=== PATIENT | female | born 1955 | race Caucasian/White ===

== ENCOUNTER 2017-01-06 19:19 | Emergency (ER) | payer MEDICAID ==
[~2017-01-06] VITALS: Ht 157.5 cm; Wt 88.5 kg
[~2017-01-06 19:19] MED LIST: ASPI-1063 PO; EZET1TAB29 PO; HYDR-914 PO; INSU100V SUBCUT
[2017-01-06 19:26] VITALS: BP_SYST 154
[2017-01-06] MEDS ORDERED: NACL 0.9% 1,000 ML IV ONE (20:06)
[2017-01-06] MEDS ORDERED: ONDANSETRON HCL 4 MG/2 ML VIAL IVP ONE (20:15)
[2017-01-06] MEDS ORDERED: HYDROmorphone 1 MG INJ. 1 MG/ML AMPUL IVP ONE ×2 (20:15→21:00)
[2017-01-06 20:27] LABS: BASOPHILS % (AUTO) 0.5 % (0.0-2.0); EOSINOPHILS # (AUTO) 0.3 K/uL (0.0-0.4); EOSINOPHILS % (AUTO) 4.2 % (0.0-4.0); HEMATOCRIT 42.1 % (36-48); HEMOGLOBIN 13.6 g/dL (12.0-16.0); LYMPHOCYTES # (AUTO) 1.7 K/uL (1.0-5.5); LYMPHOCYTES % (AUTO) 22.4 % (20.5-51.5); MEAN CORPUSCULAR HEMOGLOBIN 30 pg (27-31); MEAN CORPUSCULAR HGB CONC 32 % (32-36); MEAN CORPUSCULAR VOLUME 93 fL (79.0-98.0); MONOCYTES # (AUTO) 0.5 K/uL (0.0-1.0); MONOCYTES % (AUTO) 7.1 % (1.7-9.3); NEUTROPHILS # (AUTO) 5.1 K/uL (1.8-7.7); NEUTROPHILS % (AUTO) 65.8 % (40.0-70.0); PLATELET COUNT (AUTO) 273 K/uL (130-430); RED BLOOD CELL COUNT(AUTO) 4.55 MIL/uL (4.2-6.2); RED CELL DISTRIBUTION WIDTH 12.1 % (9.0-15.0); WHITE BLOOD COUNT (AUTO) 7.6 K/uL (4.8-10.8)
[2017-01-06 20:31] LABS: CALCIUM 10.2 mg/dL (8.4-11.0); CHLORIDE 99 mmol/L (98-107); CREATININE 0.99 mg/dL (0.55-1.30); GLUCOSE 144 mg/dL (70-99); POTASSIUM 4.2 mmol/L (3.5-5.1); SODIUM SERUM 135 mmol/L (136-145); UREA NITROGEN, BLOOD 22 mg/dL (8-21)
[2017-01-06 20:36] LABS: ALANINE AMINOTRANSFERASE 27 U/L (12-78); ALBUMIN 4.7 g/dL (3.4-4.8); AMYLASE 73 U/L (0-100); ASPARTATE AMINOTRANSFERASE 26 U/L (10-37); INR 0.9 (0.8-1.2); LIPASE 70 U/L (73-393); PROTHROMBIN TIME 9.9 SECS (9.5-12.5); TOTAL BILIRUBIN 0.4 mg/dL (0.0-1.0); TOTAL PROTEIN, SERUM 8.3 g/dL (6.4-8.3)
[2017-01-06 20:37] LABS: ANION GAP < 3 (5-15); GFR AFRICAN AMERICAN 73 mL/min (>90)
[2017-01-06] MEDS ORDERED: ACETAMINOPHEN 650 MG SUPP.RECT RC ONE (21:00)
[2017-01-06 21:30] VITALS: BP_SYST 147
== END 2017-01-06 21:30 | disposition home or self-care (01) ==
LOC: SED 19:19
DX: E11.40 Type 2 diabetes mellitus with diabetic neuropathy, unspecified (principal); J45.909 Unspecified asthma, uncomplicated; Z79.2 Long term (current) use of antibiotics; Z79.82 Long term (current) use of aspirin
CPT/HCPCS: 36415; 80053; 82150; 83690; 85025; 85610; 85651; 85730; 96361; 96374; 96375; 96376; 99284; J1170; J2405; J7030

== ENCOUNTER 2019-08-07 14:46 | Emergency (ER) | payer MEDICAID ==
[~2019-08-07] VITALS: Ht 170.2 cm; Wt 55.3 kg
[~2019-08-07 14:46] MED LIST changes: -ASPI-1063 PO; -EZET1TAB29 PO; +FLA250 PO; -HYDR-914 PO; +INSU100V9 SQ; +MESA500C PO; +METO-290 PO; +ONDA4TAB5 PO; +POTA10TA11 PO; +PRO40 PO
[2019-08-07 15:15] VITALS: BP_SYST 136
--- NOTE | 2019-08-07 16:29 | NUR ---
Placed in room 4. Placed on ekg monitor tech, blood pressure machine and pulse oximeter. To gown for exam. Side rails up.
--- NOTE | 2019-08-07 16:30 | NUR ---
Patient given written and verbal discharge instructions and verbalizes understanding. ER MD discussed with patient the results and treatment provided. Patient in stable condition. ID arm band removed. IV catheter removed intact and dressing applied, no active bleeding. Rx of Tramadol& ativan given. Patient educated on pain management and to follow up with PMD. Pain Scale 2/10 tolerable for patient. Opportunity for questions provided and answered. Medication side effect fact sheet provided.
--- NOTE | 2019-08-07 16:40 | NUR ---
Alexei foss in EDM - 08/07/19 at 2012 by SDEDTD BETTIE Bryan at bedside examining patient.
--- NOTE | 2019-08-07 16:42 | NUR ---
Patient presented to ER C/O headache.Patient A&Ox4, afebrile, skin pink & warm arrived in persaonal wheelchair, pain 12/27, denies N/V/D. Patient states she has head ache with light-headed feeling today, dizziness, and left arm numbness. PT states she has hx of dizzines, bilat partial toe amputations. Patient speaking in full sentences, Pt moving left arm.
[2019-08-07] MEDS ORDERED: LORazepam 2 MG/ML VIAL IVP ONE (16:45)
[2019-08-07] MEDS ORDERED: NS 500 ML IV ONE (16:45)
[2019-08-07] MEDS ORDERED: KETOROLAC TROMETHAMINE 30 MG VIAL IVP ONE (16:45)
--- NOTE | 2019-08-07 17:00 | NUR ---
# 18 gauge angiocath placed to left AC . Use of asceptic technique. Opsite placed over site. Blood return noted. Blood for lab drawn from site. Flushed with 10 cc of normal saline. No evidence of infiltration noted. Patient tolerated well.
[2019-08-07 17:10] LABS: BASOPHILS # (AUTO) 0.1 K/uL (0.0-0.2); BASOPHILS % (AUTO) 0.6 % (0.0-2.0); EOSINOPHILS # (AUTO) 0.1 K/uL (0.0-0.4); EOSINOPHILS % (AUTO) 0.7 % (0.0-4.0); HEMOGLOBIN 12.8 g/dL (12.0-16.0); LYMPHOCYTES # (AUTO) 1.3 K/uL (1.0-5.5); LYMPHOCYTES % (AUTO) 14.3 % (20.5-51.5); MEAN CORPUSCULAR HEMOGLOBIN 32 pg (27-31); MEAN CORPUSCULAR HGB CONC 34 % (32-36); MEAN CORPUSCULAR VOLUME 94 fL (79.0-98.0); MONOCYTES # (AUTO) 0.6 K/uL (0.0-1.0); MONOCYTES % (AUTO) 6.4 % (1.7-9.3); NEUTROPHILS # (AUTO) 7.2 K/uL (1.8-7.7); PLATELET COUNT (AUTO) 271 K/uL (130-430); RED BLOOD CELL COUNT(AUTO) 4.04 MIL/uL (4.2-6.2); RED CELL DISTRIBUTION WIDTH 12.9 % (9.0-15.0); WHITE BLOOD COUNT (AUTO) 9.2 K/uL (4.8-10.8)
[2019-08-07 17:27] LABS: CALCIUM 9.2 mg/dL (8.4-11.0); CREATININE 1.1 mg/dL (0.55-1.30); POTASSIUM 4.2 mmol/L (3.5-5.1)
[2019-08-07 17:40] VITALS: BP_SYST 133
[2019-08-07 17:44] LABS: TOTAL BILIRUBIN 0.4 mg/dL (0.0-1.0)
== END 2019-08-07 17:40 | disposition home or self-care (01) ==
LOC: SED 14:46
DX: R51 Headache (principal); R10.84 Generalized abdominal pain; R42 Dizziness and giddiness; E11.9 Type 2 diabetes mellitus without complications; J45.909 Unspecified asthma, uncomplicated; Z79.899 Other long term (current) drug therapy; Z79.4 Long term (current) use of insulin
CPT/HCPCS: 36415; 70450; 80053; 85025; 96361; 96374; 96375; 99284; J1885; J2060; J7040

== ENCOUNTER 2022-09-28 09:35 | Inpatient (IN) | payer OTHER, MEDICAID ==
[2022-09-28] VITALS (10 sets, daily range): BP systolic 69–150
[~2022-09-28] VITALS: Ht 162.6 cm; Wt 54.4 kg
[~2022-09-28 09:35] MED LIST changes: +POTA-178 PO; -POTA10TA11 PO
--- NOTE | 2022-09-28 09:35 | NUR ---
DR. KHAN AT BEDSIDE TO ASSESS PT.
--- NOTE | 2022-09-28 09:35 | NUR ---
BROUGHT IN BY [facility], PLACED IN BED #4 AND TRIAGED. REPORT GIVEN TO PINEDA
--- NOTE | 2022-09-28 09:40 | NUR ---
RECEIVED PT FROM EVIE PINEDA. PT FLAKITA ALBA FROM HOME FOR C/O S/S OF HIGH BLOOD SUGAR. PT'S BS UPON ARRIVAL IS "HIGH". PT IS AAOX4. ON R/A. DENIES N/V/D/C. PT HAS LAC 20G IV CATH IN PLACE. PT IS RECEIVED 1 LITER NS BOLUS UPON ARIVAL. DISTAL PULSES WARM, CDI, NO EDEMA. DENIES PAIN. SIDERAILS UP X2.
--- NOTE | 2022-09-28 10:10 | NUR ---
# 20 gauge angiocath placed to RAC. Use of asceptic technique. Opsite placed over site. Blood return noted. Flushed with 10 cc of normal saline. No evidence of infiltration noted. Patient tolerated well.
--- NOTE | 2022-09-28 10:25 | NUR ---
COVID SAMPLE OBTAINED AND TAKEN TO LAB.
[2022-09-28 10:28] LABS: BASOPHILS % (AUTO) 0.2 % (0.0-2.0); EOSINOPHILS % (AUTO) 0.2 % (0.0-4.0); HEMATOCRIT 36.3 % (36-48); HEMOGLOBIN 10.1 g/dL (12.0-16.0); LYMPHOCYTES # (AUTO) 1.5 K/uL (1.0-5.5); LYMPHOCYTES % (AUTO) 7.1 % (20.5-51.5); MEAN CORPUSCULAR HEMOGLOBIN 32 pg (27-31); MEAN CORPUSCULAR HGB CONC 28 % (32-36); MEAN CORPUSCULAR VOLUME 114 fL (79.0-98.0); MONOCYTES # (AUTO) 0.9 K/uL (0.0-1.0); MONOCYTES % (AUTO) 4.3 % (1.7-9.3); NEUTROPHILS # (AUTO) 18.9 K/uL (1.8-7.7); PLATELET COUNT (AUTO) 247 K/uL (130-430); RED CELL DISTRIBUTION WIDTH 15.1 % (9.0-15.0); WHITE BLOOD COUNT (AUTO) 21.5 K/uL (4.8-10.8)
[2022-09-28 10:36] LABS: INR 1.1 (0.8-1.2); PROTHROMBIN TIME 10.9 SECS (9.5-12.5)
[2022-09-28 10:37] LABS: ANION GAP 35 (5-15); CALCIUM 8.7 mg/dL (8.4-11.0); CREATININE 3.88 mg/dL (0.55-1.30); UREA NITROGEN, BLOOD 94 mg/dL (8-21)
[2022-09-28 10:38] LABS: GFR AFRICAN AMERICAN 15 mL/min (>90)
--- NOTE | 2022-09-28 10:49 | NUR ---
PT DISLODGED IV FROM LAC- BLEEDING STOPPED WITH PRESSURE AND GAUZE AND COVERED. # 18 gauge angiocath placed to LAC. Use of asceptic technique. Opsite placed over site. Blood return noted. Flushed with 10 cc of normal saline. No evidence of infiltration noted. Patient tolerated well.
[2022-09-28 10:55] LABS: ACETAMINOPHEN 4 ug/mL (1-30); ALANINE AMINOTRANSFERASE 55 U/L (12-78); ALBUMIN 3.4 g/dL (3.4-4.8); ALCOHOL, BLOOD 5 mg/dL (<10); ASPARTATE AMINOTRANSFERASE 42 U/L (10-37); C-REACTIVE PROTEIN QUANT 0.5 mg/dL (0-0.5); TOTAL BILIRUBIN 0.5 mg/dL (0.0-1.0)
[2022-09-28 10:56] LABS: GLUCOSE 1213 mg/dL (70-99)
[2022-09-28] MEDS ORDERED: NACL 0.9% 3,000 ML IV ONE (11:00)
[2022-09-28 11:25] LABS: CKMB RELATIVE INDEX 4.8 (0.0-2.9); CREATINE KINASE MB 21.7 ng/mL (0-3.6)
[2022-09-28 11:26] LABS: CHLORIDE 84 mmol/L (98-107)
[2022-09-28] MEDS ORDERED: NOREPINEPHRINE 4 MG/4 ML VIAL IV ONE ×2 (11:26→15:32)
[2022-09-28 11:33] LABS: ACETONE, SERUM POSITIVE (NEGATIVE)
[2022-09-28 11:41] LABS: NEUTROPHILS % (AUTO) 88.2 % (40.0-70.0)
[2022-09-28] MEDS ORDERED: NOREPINEPHRINE BITARTRATE 4 MG in NS 246 ML IV ONE (11:45)
[2022-09-28] MEDS ORDERED: INSULIN REGULAR, HUMAN 100 UNITS in NS 99 ML IV ONE ×4 (11:45→12:30)
[2022-09-28] MEDS ORDERED: PIPERACILLIN/TAZO 4.5GM/DEX-IS 100 ML IV SCH (12:00)
[2022-09-28] MEDS ORDERED: INSULIN REGULAR, HUMAN 100 UNITS in NS 99 ML IV PRN ×4 (12:00→18:00)
--- NOTE | 2022-09-28 12:00 | NUR ---
Patient not known to be of DNR status. Patient medicated with 10 mg of VECERONIUM prior to placement of ET tube. Respiratory therapy at bedside prior to placement. Size 7.5 ET tube placed by ER DR. KHAN. Cuff inflated with 10 cc air. Auscultation of breath sounds over bilateral chest wall. ET tube secured with EMILY. O2 sats 100% pulse ox. PCXR ordered to check tube placement.
[2022-09-28] MEDS ORDERED: PROPOFOL DRIP 100 ML IV ONE ×2 (12:04→12:45)
[2022-09-28 12:06] LABS: BILIRUBIN,URINE NEGATIVE (NEGATIVE); BLOOD, URINE 1+ (NEGATIVE); CLARITY/URINE CLEAR (CLEAR); COLOR,URINE YELLOW (YELLOW); GLUCOSE,URINE 3+ (NEGATIVE); KETONES,URINE 1+ (NEGATIVE); LEUKOCYTE ESTERASE ,URINE NEGATIVE (NEGATIVE); NITRITE, URINE NEGATIVE (NEGATIVE); PROTEIN URINE TRACE (NEGATIVE); UROBILINOGEN,URINE 0.2 (0.2-1.0)
[2022-09-28] MEDS ORDERED: VECURONIUM BROMIDE 10 MG/VIAL (NORCURON) IVP ONE (12:15)
[2022-09-28 12:22] LABS: BARBITURATE, URINE NEGATIVE (NEG <=200); BENZODIAZEPINE, URINE NEGATIVE (NEG <=150); CANNABINOID, URINE NEGATIVE (NEG <=50); COCAINE, URINE NEGATIVE (NEG <=150); METHAMPHETAMINES SCREEN,URINE NEGATIVE (NEG <=500); OPIATE, URINE NEGATIVE (NEG <=100); PHENCYCLIDINE SCREEN,URINE NEGATIVE (NEG <=25); UR TRICYCLIC ANTIDEPRESSANTS NEGATIVE (NEG <=300); URINE AMPHETAMINE NEGATIVE (NEG <=500); URINE METHADONE NEGATIVE (NEG <=200); URINE OXYCODONE SCREEN NEGATIVE (NEG <=100); URINE PROPOXYPHENE SCREEN NEGATIVE (NEG <=300)
--- NOTE | 2022-09-28 12:25 | NUR ---
1200 ASSISTED INTUBATION BY ED MD KHAN. ETT 7.5 AT LIP LINE. CO2 DETECTOR CHANGED COLOR YELLOW AND BILATERAL BREATH SOUNDS NOTICED. 1205 PATIENT ON VENT SETTINGS WITH AC14, VT450, PEEP +5, FIO2 100%. VENT TO RED OUTLET AND ALARMS ARE AUDIBLE.
[2022-09-28 12:26] LABS: BACTERIA,URINE None Seen /HPF (None Seen); HYALINE CASTS, URINE 0-10 /LPF (None Seen); WBC,URINE 0-3 /HPF (0-3)
--- NOTE | 2022-09-28 12:26 | NUR ---
LEVOPHED INITIATED AND TITRATED UP TO 0.3MCG/KG/MIN FOR MAP OF 52. B/P NOW 72. OGT 16FR PLACED.
[2022-09-28] MEDS ORDERED: NACL 0.9% 1,000 ML IV ONE (12:30)
[2022-09-28] MEDS ORDERED: INSULIN REGULAR, HUMAN 10 UNITS/0.1 ML, 3 ML VIAL IVP ONE (12:30)
[2022-09-28] MEDS: NACL 0.9% 1,000 ML IV SCH (12:35)
--- NOTE | 2022-09-28 12:36 | NUR ---
MRSA OBTAINED. SCHEDULED MEDS GIVEN. RADIOLOGY CALLED AND MADE AWARE PT HAS STAT CXR ORDERED.
[2022-09-28] MEDS ORDERED: fentaNYL CITRATE/PF 100 MCG/2 ML AMP IVP ONE (12:45)
[2022-09-28] MEDS ORDERED: DEXTROSE 50% JECT 50 ML DISP.SYRIN IVP PRN (12:45)
[2022-09-28] MEDS ORDERED: PIPERACILLIN/TAZO 4.5GM/DEX-IS 100 ML IV ONE (13:00)
[2022-09-28] MEDS ORDERED: VANCOMYCIN HCL 750 MG in NS 250 ML IV ONE (13:00)
[2022-09-28] MEDS ORDERED: ACET-73 PO (13:09)
[2022-09-28] MEDS ORDERED: DOXY100T2 PO (13:09)
[2022-09-28] MEDS ORDERED: INSU100V9 SQ (13:09)
[2022-09-28] MEDS ORDERED: LIP20 PO (13:09)
[2022-09-28] MEDS ORDERED: FLOR.1 GT (13:09)
[2022-09-28] MEDS ORDERED: ONDA8TAB60 PO (13:09)
[2022-09-28] MEDS ORDERED: INSU100V SUBCUT (13:09)
--- NOTE | 2022-09-28 13:28 | NUR ---
1325 CHANGED RR TO 18 PER MD KHAN. TITRATED FIO2 DOWN TO 70%.
--- NOTE | 2022-09-28 13:28 | NUR ---
spoke to son roseann in lobby and informed him of her admit into icu after CT scan is done.
[2022-09-28] MEDS ORDERED: SODIUM BICARBONATE 8.4% JECT 50 MEQ/50 ML SYRINGE IVP ONE (13:30)
[2022-09-28] MEDS ORDERED: ONDANSETRON HCL 4 MG/2 ML VIAL IVP PRN (14:00)
--- NOTE | 2022-09-28 14:07 | NUR ---
OGT NOT IN PLACE. DRAWN BACK [address] KHAN ORDER KUB TO CONFIRM PLACEMENT.
--- NOTE | 2022-09-28 14:49 | NUR ---
[address] AND TO ICU 6 VIA AMBU BAG 15LPM. 1435 PATIENT ON VENT SETTINGS WITH AC18, 450, +5, 70%. VENT TO RED OUTLET AND ALARMS ARE AUDIBLE. NO RESPIRATORY DISTRESS NOTED. SPO2 100%, HR 96.
[2022-09-28] MEDS: IPRATROPIUM BROM 0.5 MG/2.5 ML VIAL.NEB (ATROVENT) INH SCH ×3 (15:00→23:56)
[2022-09-28] MEDS: ALBUTEROL SULFATE 0.083% 2.5 MG/3 ML VIAL.NEB INH SCH ×3 (15:00→23:56)
--- NOTE | 2022-09-28 15:00 | NUR ---
PT TRANSFERED WITH R/T TO CT SCAN, THEN FOR KUB THEN TO ICU BED 6. Patient will be admitted to care of EVIE KATZ. Admitted to ICU unit. Will go to room 6. Belongings list completed. Complete and up to date summary report printed. SBAR report to be given at bedside with opportunity for questions.
[2022-09-28] MEDS ORDERED: NOREPINEPHRINE BITARTRATE 8 MG in D5W 242 ML IV PRN (15:15)
[2022-09-28] MEDS ORDERED: SODIUM BICARBONATE 8.4% JECT 150 MEQ in D5W 1,000 ML IVP SCH (19:15)
--- NOTE | 2022-09-28 19:30 | NUR ---
Pt report received. Pt sedated and mechanically ventilated with 7.5 ETT, 22 cm to lip, A/C mode, 18, 450, 50%, 5. OGT in place and clamped. RIJ triple lumen central line patent and secure with Levophed drip infusing at 0.12 mcg/kg/min, Propofol drip at 30 mcg/kg/min, Insulin Drip at 3 Units/hr and NS at 100 mL/hr. 20 GA PIV RAC and 18 GA PIV LAC patent and secure. F/C draining yellow urine. VSS, NAD.
[2022-09-28 20:00] LABS: CALCIUM 7.4 mg/dL (8.4-11.0); CREATININE 3.48 mg/dL (0.55-1.30)
[2022-09-28] MEDS ORDERED: HEPARIN 25,000 UNITS/D5W 250ML 250 ML IV PRN (20:00)
[2022-09-28] MEDS ORDERED: *HEPARIN PER PHARMACY XX ONE (20:00)
--- NOTE | 2022-09-28 20:00 | NUR ---
Family member at bedside. Updated on pt condition and questions answered.
--- NOTE | 2022-09-28 20:00 | NUR ---
Dr. Janette Banks [place] [address]. New orders: Stat EKG and repeat in AM, ECHO in AM, Heparin Drip with pharmacy to dose and keep PTT between 50 - 70, repeat Troponin in AM. Addendum: 09/29/22 at 0618 by Malachi Collins RN ECHO in AM if not previously done. ECHO was complete on 09/28/22.
[2022-09-28 20:02] LABS: ALBUMIN 2.9 g/dL (3.4-4.8); TOTAL BILIRUBIN 0.4 mg/dL (0.0-1.0)
[2022-09-28] MEDS ORDERED: SODIUM BICARBONATE 8.4% VIAL 50 MEQ/50 ML VIAL ONE (20:31)
[2022-09-28] MEDS ORDERED: SODIUM BICARBONATE 8.4% JECT 50 MEQ/50 ML SYRINGE ONE ×2 (20:31→20:40)
--- NOTE | 2022-09-28 20:33 | NUR ---
Receive patient from ED at 1530. Patient made comfortable and family at bedside. Patient on various drips and sedated at this time. Monitoring patient labs and advise MDs about abnormals and putting info in for further orders at this time.
[2022-09-28] MEDS ORDERED: HEPARIN SODIUM,PORCINE 5,000 UNITS/ML VIAL IV ONE ×2 (20:45→21:45)
[2022-09-28] MEDS ORDERED: HEPARIN SODIUM,PORCINE 3000 UNITS/0.6 ML BOLUS IVP PRN ×2 (21:00→21:30)
[2022-09-28] MEDS ORDERED: HEPARIN SODIUM,PORCINE 2000 UNITS/0.4 ML BOLUS IVP PRN ×2 (21:00→21:30)
--- NOTE | 2022-09-28 21:05 | NUR ---
Dr. Guzmán-Sayed at bedside to assess pt and speak with family. New orders received: Give Humulin R Insulin bolus 15 Units IVP now, increase Insulin Drip to 6 Units/hr, Change to DKA Insulin Algorithm #2, BMP q 6 hours and repeat Mg and Phos levels on next draw.
--- NOTE | 2022-09-28 21:20 | NUR ---
Per Dr. Guzmán-Sayed, turn off bicarb drip when BMP CO2 equal to or greater than 16.
--- NOTE | 2022-09-28 21:35 | NUR ---
Called on-call pharmacy to clarify Heparin Order. Per Dany, give Heparin Bolus of 3000 Units and begin Heparin Drip at 800 Units/hr.
[2022-09-28] MEDS: HEPARIN 25,000 UNITS in 250 ML PREMIX IV PRN (21:39)
--- NOTE | 2022-09-28 22:30 | NUR ---
CO2 level 18. Bicarb drip turned off.
--- NOTE | 2022-09-28 22:40 | NUR ---
Blood sugar 874 mg/dL. Notified Dr. SchererSayed. Orders to continue to follow DKA Insulin Drip Algorithm 2. Insulin drip rate increased to 7 Units/hr.
[2022-09-28 22:54] LABS: CALCIUM 7.4 mg/dL (8.4-11.0); CREATININE 3.63 mg/dL (0.55-1.30); PHOSPHORUS 4.1 mg/dL (2.7-4.5)
--- NOTE | 2022-09-28 23:15 | NUR ---
Dr. Shekhar Hutchnison at bedside to assess pt.
[2022-09-29] VITALS (50 sets, daily range): BP systolic 104–143
[2022-09-29] MEDS: PIPERACILLIN/TAZO 3.375/DEX-IS 50 ML IV SCH ×4 (01:17→22:03)
[2022-09-29] MEDS: NACL 0.9% 1,000 ML IV SCH ×2 (01:18→06:24)
[2022-09-29] MEDS ORDERED: HEPARIN SODIUM,PORCINE 5,000 UNITS/ML VIAL IV ONE (01:30)
[2022-09-29 01:36] LABS: GLUCOSE 726 mg/dL (70-99)
--- NOTE | 2022-09-29 01:40 | NUR ---
Critical Troponin result: [id number]
--- NOTE | 2022-09-29 01:55 | NUR ---
Notified Dr. Janette Banks of Troponin result . No new orders received.
[2022-09-29] MEDS: PROPOFOL DRIP 100 ML IV PRN ×4 (02:05→23:57)
--- NOTE | 2022-09-29 03:00 | NUR ---
Dr. Shekhar Banks notified of pt temp 101.4. New order for Tylenol 650 mg PO q 6 hrs PRN.
[2022-09-29] MEDS: INSULIN REGULAR, HUMAN 100 UNITS in NS 99 ML IV PRN ×12 (03:04→18:11)
[2022-09-29] MEDS ORDERED: ACETAMINOPHEN 325 MG TABLET ONE (03:09)
--- NOTE | 2022-09-29 03:30 | NUR ---
Called lab to inquire about 0230 aPTT and glucose results. Spoke with ED, CLS and he states that results are still pending. Then noticed that the hourly glucose levels that were previously entered for 0230 and 0330 were cancelled and changed to BMPs. Lab is unable to cancel or edit the order, as results are pending.
[2022-09-29 04:26] LABS: CALCIUM 7.4 mg/dL (8.4-11.0); CREATININE 3.47 mg/dL (0.55-1.30)
[2022-09-29 04:27] LABS: CALCIUM 7.4 mg/dL (8.4-11.0); CREATININE 3.47 mg/dL (0.55-1.30)
[2022-09-29] MEDS: ALBUTEROL SULFATE 0.083% 2.5 MG/3 ML VIAL.NEB INH SCH ×6 (04:55→23:20)
[2022-09-29] MEDS: IPRATROPIUM BROM 0.5 MG/2.5 ML VIAL.NEB (ATROVENT) INH SCH ×6 (04:56→23:20)
[2022-09-29 05:25] LABS: ALBUMIN 2.7 g/dL (3.4-4.8); CALCIUM 7.7 mg/dL (8.4-11.0); CREATININE 3.55 mg/dL (0.55-1.30); THYROID STIMULATING HORMONE 1.05 uIu/mL (0.36-3.74); TOTAL BILIRUBIN 0.3 mg/dL (0.0-1.0)
--- NOTE | 2022-09-29 05:55 | NUR ---
Ed from lab reports that he is unable to obtain a value for the aPTT drawn at 0230 this AM. He states that he repeated the lab three times in extended mode. Will redraw aPTT.
[2022-09-29 06:14] LABS: BASOPHILS % (AUTO) 0.1 % (0.0-2.0); HEMATOCRIT 33.1 % (36-48); HEMOGLOBIN 10.9 g/dL (12.0-16.0); LYMPHOCYTES # (AUTO) 1.1 K/uL (1.0-5.5); LYMPHOCYTES % (AUTO) 4.3 % (20.5-51.5); MEAN CORPUSCULAR HEMOGLOBIN 32 pg (27-31); MEAN CORPUSCULAR HGB CONC 33 % (32-36); MEAN CORPUSCULAR VOLUME 96 fL (79.0-98.0); MONOCYTES # (AUTO) 2.5 K/uL (0.0-1.0); NEUTROPHILS # (AUTO) 21.8 K/uL (1.8-7.7); NEUTROPHILS % (AUTO) 85.6 % (40.0-70.0); PLATELET COUNT (AUTO) 237 K/uL (130-430); RED BLOOD CELL COUNT(AUTO) 3.47 MIL/uL (4.2-6.2); RED CELL DISTRIBUTION WIDTH 13.2 % (9.0-15.0); WHITE BLOOD COUNT (AUTO) 25.4 K/uL (4.8-10.8)
--- NOTE | 2022-09-29 07:10 | NUR ---
Pt report given to oncoming shift. No changes in vent settings. Propofol at 50 mcg/kg/min, Levophed at 0.12 mcg/kg/min, Insulin Drip at 7 Units/hr, Heparin Drip 800 Units/hr, NS at 100 mL/hr. F/C draining yellow urine with total U/O 300 mL this shift. VSS, NAD.
--- NOTE | 2022-09-29 08:45 | NUR ---
PTT IS 98.1 PER PROTOCOL TURN OFF HEPARIN FOR ONE HOUR AND RESTART.
[2022-09-29] MEDS ORDERED: ENOXAPARIN SODIUM 40 MG/0.4 ML SYRINGE SUBCUT SCH (09:00)
[2022-09-29 09:13] LABS: CALCIUM 7.6 mg/dL (8.4-11.0); CREATININE 3.61 mg/dL (0.55-1.30)
[2022-09-29] MEDS: HEPARIN 25,000 UNITS in 250 ML PREMIX IV PRN (09:45)
--- NOTE | 2022-09-29 09:45 | NUR ---
HEPARIN RESTARTED AT 0945 AM. 600 UNITS, TO ORDER A NEW PTT LAB DRAW IN SIX HOURS AT 1545.
--- NOTE | 2022-09-29 10:28 | NUR ---
[address] TRONCOSO-SAYED SEED PRODUCTION FIELD SUPERVISOR REGARDING BLOOD SUGAR AND BLOOD SUGAR TRENDS. PER DR. TRONCOSO-SAYED KEEP PATIENT AT 7 UNITS/HR REGULAR INSULIN DRIP UNTIL BLOOD SUGAR REACHES 250 OR BELOW THEN FOLLOW EMAR ALGORITHM ONE.
--- NOTE | 2022-09-29 10:28 | NUR ---
[address] PANTOJA PUBLIC UTILITIES SALES REPRESENTATIVE REGARDING BLOOD SUGAR. PER DR. PANTOJA ONCE PATIENT'S BLOOD SUGAR REACHES 250 AND BELOW TO SWITCH INSULIN DRIP TO ALGORITHM ONE.
[2022-09-29 10:35] LABS: CALCIUM 7.5 mg/dL (8.4-11.0); CREATININE 3.4 mg/dL (0.55-1.30)
--- NOTE | 2022-09-29 14:50 | NUR ---
DR. SCHOFIELD AT BEDSIDE PRESCRIBED 20 MEQ POTASSIUM DUE TO POTASSIUM LEVEL 3.2, PRESCRIBED 20 MEQ FOR NOW DUE TO KIDNEY FUNCTION LEVELS. 2 GM CALCIUM GLUCONATE ORDERED, CALCIUM LEVEL 7.5. ORDERS SUBMITTED.
[2022-09-29] MEDS ORDERED: CALCIUM GLUCONATE 2 GM in NS 100 ML IV ONE (15:00)
[2022-09-29] MEDS ORDERED: POTASSIUM CHLORIDE 20 MEQ/PKT PACKET GT ONE (15:30)
[2022-09-29] MEDS: CALCIUM GLUCONATE 1 GM in NS 100 ML IV SCH ×2 (15:58→17:04)
--- NOTE | 2022-09-29 19:40 | NUR ---
HIGH ALERT NOTE: INSULIN Dr. TRONCOSO-SAYED AT BEDSIDE, GAVE ORDER FOR NPH 10 UNITS BID STARTING TOMORROW. ALSO, NPH 10 UNITS TO BE GIVEN NOW. AFTER TWO HOURS FROM NPH ADMINISTRATION DISCONTINUE INSULIN DRIP.
--- NOTE | 2022-09-29 19:44 | NUR ---
DR. TAYLOR AT BEDSIDE ORDERED TO STOP DISCONTINUE NORMAL SALINE. AFTER INSULIN DRIP IS TURNED OFF,START D5 1/2 NORMAL SALINE TO RUN AT 100 ML/HR. ACCUCHECKS [id number], INSULIN TO BE ADMINISTERED PER SLIDING SCALE.
[2022-09-29] MEDS ORDERED: INSULIN NPH 100 UNITS/ML 10 ML VIAL SUBCUT ONE (20:00)
--- NOTE | 2022-09-29 20:00 | NUR ---
Pt is noted in bed with ET 7.[address] as pt is Intubated with Vent setting off AC 18, 450, 30% and 5 as she is a full code with family at bedside as report is received from the off going nurse. Sinus Rhythm on the Tele monitor, diminished Lungs sound, Skin dry, warm with skin areas noted, please see skin assessment in place. Pt is noted with NG-Tube, Elizondo Cath , RIJ Central Line, #18g LAC and #20g RAC with Levo 0.03gtt, IVF 0.NS at 100ML/HR, Insulin at 7units/HR, Heparin at 600uints/6mg and Propofol at 40mcg. Pt care continue as she will be monitor closely for any S/S off distress or change in conditions during the shift. New Orders , please see EMAR.
[2022-09-29] MEDS: INSULIN NPH 100 UNITS/ML 10 ML VIAL SUBCUT SCH (20:36)
--- NOTE | 2022-09-29 20:40 | NUR ---
Pt care continue with family at bedside as she received 10units gtt NPH as ordered with Blood Glucose off 189. Insulin gtt will be turn off at 2235 as ordered and IVF D51/2NS AT 100ML/HR will start.
[2022-09-29] MEDS: LINEZOLID 300 ML IV SCH (20:49)
[2022-09-29] MEDS ORDERED: *HEPARIN PER PHARMACY XX PRN (21:45)
[2022-09-29] MEDS: D5/0.45 NS 1,000 ML IV SCH (22:32)
[2022-09-29 23:11] LABS: THYROID STIMULATING HORMONE 0.52 uIu/mL (0.36-3.74)
[2022-09-30] VITALS (53 sets, daily range): BP systolic 102–145
[2022-09-30] MEDS: INSULIN LISPRO SLIDING SCALE 100 UNITS/ML, 3 ML VIAL (humaLOG) SUBCUT PRN ×4 (00:14→18:24)
--- NOTE | 2022-09-30 01:08 | NUR ---
Pt remain Intubated , full code with family at bedside as IVF D51/2 at 100ML/HR as Insulin gtt was discontinue at 2230 , Heparin gtt remain at 600units/6mg with PTT at 56.5 2230 drawn, Levo gtt at 0.05 , Propofol gtt at 44.25mcg/10mg . Pt care continue as she is been monitor closely for any S/S off distress or change in conditions .
[2022-09-30] MEDS: ALBUTEROL SULFATE 0.083% 2.5 MG/3 ML VIAL.NEB INH SCH ×6 (03:45→23:36)
[2022-09-30] MEDS: IPRATROPIUM BROM 0.5 MG/2.5 ML VIAL.NEB (ATROVENT) INH SCH ×6 (03:45→23:36)
--- NOTE | 2022-09-30 04:17 | NUR ---
Pt remain sedated with Propofol gtt therapy while Intubated , also Levo gtt and IVF therapy in progress as AM and wound care done. Pt care continue as she is been monitor closely with family at bedside.
[2022-09-30] MEDS: D5/0.45 NS 1,000 ML IV SCH (06:00)
[2022-09-30 06:13] LABS: HEMATOCRIT 30.3 % (36-48); HEMOGLOBIN 10.1 g/dL (12.0-16.0); LYMPHOCYTES # (AUTO) 1.4 K/uL (1.0-5.5); LYMPHOCYTES % (AUTO) 8.2 % (20.5-51.5); MEAN CORPUSCULAR HEMOGLOBIN 32 pg (27-31); MEAN CORPUSCULAR HGB CONC 33 % (32-36); MEAN CORPUSCULAR VOLUME 95 fL (79.0-98.0); MONOCYTES # (AUTO) 1.2 K/uL (0.0-1.0); NEUTROPHILS # (AUTO) 14.2 K/uL (1.8-7.7); NEUTROPHILS % (AUTO) 84.8 % (40.0-70.0); PLATELET COUNT (AUTO) 164 K/uL (130-430); RED CELL DISTRIBUTION WIDTH 13.4 % (9.0-15.0); WHITE BLOOD COUNT (AUTO) 16.8 K/uL (4.8-10.8)
[2022-09-30] MEDS: PIPERACILLIN/TAZO 3.375/DEX-IS 50 ML IV SCH ×3 (06:13→22:50)
[2022-09-30 06:49] LABS: ALBUMIN 2.5 g/dL (3.4-4.8); C-REACTIVE PROTEIN QUANT 2.3 mg/dL (0-0.5); CALCIUM 7.9 mg/dL (8.4-11.0); CREATININE 2.69 mg/dL (0.55-1.30); PHOSPHORUS 3.8 mg/dL (2.7-4.5); TOTAL BILIRUBIN 0.4 mg/dL (0.0-1.0)
[2022-09-30] MEDS ORDERED: INSULIN NPH 100 UNITS/ML 10 ML VIAL SUBCUT SCH (07:00)
[2022-09-30] MEDS: PROPOFOL DRIP 100 ML IV PRN (07:27)
--- NOTE | 2022-09-30 07:43 | NUR ---
Pt care continue as report is given to the AM receiving nurse.
--- NOTE | 2022-09-30 08:20 | NUR ---
MD ARANGO PAGED FOR CPAP ORDERS, OK TO CPAP TRIAL PATIENT ON VENT, STOP PROPOFOL, NO REPEAT ABG. OK TO SWITCH D5 -1/2NS TO 1/2NS@100CC. TO NOTIFY RT ZUNIGA OF CPAP TRIAL.
--- NOTE | 2022-09-30 08:35 | NUR ---
RT NOTES coordinated with rn, per order, vent to cpap 5 ps 10. will monitor pt
[2022-09-30] MEDS: 0.45% NACL 1,000 ML IV SCH ×2 (08:43→18:28)
[2022-09-30] MEDS: HEPARIN 25,000 UNITS in 250 ML PREMIX IV PRN (08:45)
[2022-09-30] MEDS: LINEZOLID 300 ML IV SCH ×2 (08:51→21:28)
[2022-09-30 09:29] LABS: ERYTHROCYTE SEDIMENTATION RATE 7 MM/HR (0-20)
--- NOTE | 2022-09-30 09:49 | NUR ---
Dietitian Recommendations * Consider initiating TF, if medically appropriate --Glucerna 1.2 @ 40mL/hr via NGT Provides (w/ current prop):1514 kcal, 58g PRO, 773mL free water Meets: 100% kcal,135% lower PRO needs * When pt extubated, please contact RD for nutritional re-assessment GS, MPH, RD Please refer to RD Assessment for further details. Thanks! Addendum: 09/30/22 at [address] Amended: Links added.
--- NOTE | 2022-09-30 10:05 | NUR ---
PAGED MD ARANGO ON UPDATE FOR CPAP TRIAL. PT TOLERATED WELL. CPAP TRIAL OVER 1 HOUR NOW. AWAITING CALL BACK AND ADDITIONAL ORDERS.
[2022-09-30] MEDS ORDERED: KCL 40 mEq in 100 mL (PREMIX) 100 ML IV ONE (10:15)
--- NOTE | 2022-09-30 10:25 | NUR ---
PAGED MD ARANGO ON UPDATE FOR CPAP TRIAL. SECOND ATTEMPT. PT TOLERATED WELL. CPAP TRIAL OVER 1 HOUR NOW. AWAITING CALL BACK AND ADDITIONAL ORDERS.
--- NOTE | 2022-09-30 10:25 | NUR ---
RT NOTES Pt set apnea alarm off multiple times, requiring frequent stimulation, despite sedation being off for more than an hour. Vent back to previous AC settings. Rn aware.
--- NOTE | 2022-09-30 11:05 | NUR ---
MD ARANGO RETURNED CALL, OK TO PLACE PT BACK ON AC MODE. WILL SEE AND ASSESS PATIENT LATER TODAY.
[2022-09-30] MEDS: FLUCONAZOLE 100 mg/ NS 50 ML IV SCH (12:14)
--- NOTE | 2022-09-30 14:20 | NUR ---
PER MD ARANGO, PLACE PT ON CPAP TRIAL FOR ONE HOUR AND THEN REPEAT ABG. ALSO, REPEAT CXR. MD TO ARRIVE AROUND 1530 FOR ASSESS AND POSSIBLE EXTUBATION.
--- NOTE | 2022-09-30 14:30 | NUR ---
RT NOTES 2nd cpap trial per order, vent to cpap 5 ps 10. no adverse reactions noted. ABG to be drawn 1 hr post change, per order.
--- NOTE | 2022-09-30 15:30 | NUR ---
RT NOTES pt cont. to tolerate cpap well. no distress noted. RSBI 53
--- NOTE | 2022-09-30 15:45 | NUR ---
MD TRONCOSO-SAYED AT BEDSIDE FOR ASSESS.
--- NOTE | 2022-09-30 15:55 | NUR ---
MD ARANGO AT BEDSIDE WITH ABG RESULT, CXR IMAGE AND ASSESS. OK TO EXTUBATE, RT NADIA AT BEDSIDE.
[2022-09-30] MEDS ORDERED: INSULIN NPH 100 UNITS/ML 10 ML VIAL SUBCUT ONE (16:00)
--- NOTE | 2022-09-30 16:05 | NUR ---
PT EXTUBATED PER MD ARANGO ORDERS. ALSO, OGT REMOVED. SWALLOW EVAL TO BE PLACED FOR TOMORROW. PT TOLERATED WELL. PLACED ON O2 2LPM VIA N/C. VSS. NAD NOTED. WILL CONT TO MONITOR PT.
--- NOTE | 2022-09-30 16:05 | NUR ---
RT NOTES Per order, pt was extubated and placed on 3L NC intially, then to 2L NC per target sat >92%. Sat 99%. Oral sxn done prior to cuff deflation. Pt was re-educated on deep breathing exercises.
[2022-09-30] MEDS ORDERED: BISACODYL 10 MG/SUPPOSITORY RC ONE (21:00)
[2022-09-30] MEDS: INSULIN NPH 100 UNITS/ML 10 ML VIAL SUBCUT SCH (21:29)
[2022-10-01] VITALS (18 sets, daily range): BP systolic 112–122
[2022-10-01] MEDS: IPRATROPIUM BROM 0.5 MG/2.5 ML VIAL.NEB (ATROVENT) INH SCH ×6 (03:00→23:27)
[2022-10-01] MEDS: ALBUTEROL SULFATE 0.083% 2.5 MG/3 ML VIAL.NEB INH SCH ×6 (03:00→23:27)
[2022-10-01] MEDS: 0.45% NACL 1,000 ML IV SCH ×3 (04:24→23:41)
[2022-10-01] MEDS: PIPERACILLIN/TAZO 3.375/DEX-IS 50 ML IV SCH ×3 (05:43→21:08)
[2022-10-01 06:03] LABS: BASOPHILS % (AUTO) 0.1 % (0.0-2.0); HEMOGLOBIN 9.4 g/dL (12.0-16.0); LYMPHOCYTES # (AUTO) 0.7 K/uL (1.0-5.5); LYMPHOCYTES % (AUTO) 5.6 % (20.5-51.5); MEAN CORPUSCULAR HEMOGLOBIN 32 pg (27-31); MEAN CORPUSCULAR HGB CONC 34 % (32-36); MEAN CORPUSCULAR VOLUME 94 fL (79.0-98.0); MONOCYTES # (AUTO) 0.6 K/uL (0.0-1.0); NEUTROPHILS # (AUTO) 10.7 K/uL (1.8-7.7); NEUTROPHILS % (AUTO) 89.3 % (40.0-70.0); PLATELET COUNT (AUTO) 119 K/uL (130-430); RED BLOOD CELL COUNT(AUTO) 2.98 MIL/uL (4.2-6.2); RED CELL DISTRIBUTION WIDTH 13.8 % (9.0-15.0); WHITE BLOOD COUNT (AUTO) 11.9 K/uL (4.8-10.8)
[2022-10-01 06:37] LABS: ALBUMIN 2.2 g/dL (3.4-4.8)
[2022-10-01 07:01] LABS: ERYTHROCYTE SEDIMENTATION RATE 29 MM/HR (0-20)
--- NOTE | 2022-10-01 07:15 | NUR ---
Opening Note Received patient from [facility] shift nurse. Patient currently running 1/2NS @100mL/hr and Heparin @ 6mL/hr. Patient appears relaxed with no s/s of distress. Will continue to monitor.
[2022-10-01 08:26] LABS: C-REACTIVE PROTEIN QUANT 8.3 mg/dL (0-0.5); CREATININE 1.75 mg/dL (0.55-1.30); PHOSPHORUS 2.6 mg/dL (2.7-4.5); TOTAL BILIRUBIN 1.1 mg/dL (0.0-1.0)
[2022-10-01] MEDS: HEPARIN 25,000 UNITS in 250 ML PREMIX IV PRN ×2 (08:47→20:09)
[2022-10-01] MEDS: BISACODYL 10 MG/SUPPOSITORY RC SCH (09:00)
[2022-10-01] MEDS: INSULIN NPH 100 UNITS/ML 10 ML VIAL SUBCUT SCH ×2 (09:00→21:00)
[2022-10-01] MEDS: LINEZOLID 300 ML IV SCH (09:28)
[2022-10-01] MEDS ORDERED: K PHOS 15 MM in NS 250 ML IV ONE (09:45)
--- NOTE | 2022-10-01 09:45 | NUR ---
Dr. Banks bedside assessing patient. Notified MD of patients current labs. New orders placed. Will continue to monitor.
[2022-10-01] MEDS: INSULIN LISPRO SLIDING SCALE 100 UNITS/ML, 3 ML VIAL (humaLOG) SUBCUT PRN ×2 (12:09→17:23)
[2022-10-01] MEDS ORDERED: METOPROLOL SUCCINATE 25 MG TAB.SR.24H (TOPROL XL) PO ONE (12:10)
[2022-10-01] MEDS: FLUCONAZOLE 100 mg/ NS 50 ML IV SCH (12:39)
--- NOTE | 2022-10-01 13:19 | NUR ---
PAGED MD MAYCO GUILLEN'S EXCHANGE FOR NEW GI CONSULT PER MD Shekhar ELIZONDO ORDERS.
--- NOTE | 2022-10-01 14:25 | NUR ---
Patient transferred to tele room 117b. Report given to December. Patient handoff given bedside. No s/s of distress when handoff given.
--- NOTE | 2022-10-01 14:25 | NUR ---
RECEIVED REPORT FROM [place] ICU NURSE. PT RESTING IN BED, BREATHING ON 2L/MIN VIA NC. DENIES ANY PAIN OR DISCOMFORT. SEVERAL IV SITES: RIJ-RUNNING HEPARIN DRIP @8ML/HR AND POTASSIUM PHOSPHATE, AND LAC AND RAC REMAIN S/L. DTR AT BEDSIDE. PT IS A/O X4, COOPERATIVE. NPO UNTIL S.T EVAL. AZEVEDO CATHETER DRAINING BY GRAVITY. CALL LIGHT WITHIN REACH. SAFETY PRECAUTION IN PLACE. WILL CONT TO MONITOR
--- NOTE | 2022-10-01 15:30 | NUR ---
NOTES; PT HAD LOOSE STOOL, PROVIDED GOOD GINGER CARE.
--- NOTE | 2022-10-01 15:30 | NUR ---
NOTES; CRITICAL LAB: TROPONIN 4179, NOTIFIED DR.PALIWALY Addendum: 10/01/22 at 1641 by Shahab Rubio RN CORINNA
--- NOTE | 2022-10-01 16:00 | NUR ---
NOTES; PTT: 68.1, CONTINUE TO THE SAME RATE PER PHARMACY PROTOCOL. CALLED ICU NURSE REGARDING INSULIN DRIP, INSULIN DRIP HAS BEEN DISCONTINUED.
--- NOTE | 2022-10-01 17:23 | NUR ---
ST EVALUATION COMPLETED. ST TX NOT INDICATED AT THIS TIME. RECOMMEND PO DIET OF PUREE/THIN LIQUID. 1:1 SUPERVISION AND FULL ASPIRATION PRECAUTIONS
--- NOTE | 2022-10-01 18:35 | NUR ---
NOTES; LEFT VOICE MESSAGE TO DIETARY RE: PUREE DIET ORDER
--- NOTE | 2022-10-01 18:37 | NUR ---
CLOSING NOTE; PT RESTING IN BED. BREATHING NON-LABORED AND REGULAR ON 2L/MIN O2 VIA NC. DENIES ANY PAIN OR DISCOMFORT. IVF RUNNING ORDERED WITH HEPARIN@8. IV SITES REMAIN INTACT AND CLEAN. NO IV INFILTRATION OR INFECTION NOTED. FAMILY AT BEDSIDE. PROVIDED MULTIPLE GOOD GINGER CARE, PATIENT TOLERATED WELL. BED IS LOCKED AND AT LOW POSITION. ENCOURAGED PT TO USE CALL LIGHT FOR ASSISTANCE. WILL ENDORSE CARE TO FOLDER TAPER OPERATOR NURSE.
[2022-10-01] MEDS: ACETAMINOPHEN 325 MG TABLET PO PRN (22:41)
[2022-10-02] VITALS: BP_SYST 108
[2022-10-02] MEDS: HEPARIN 25,000 UNITS in 250 ML PREMIX IV PRN (00:07)
[2022-10-02] MEDS: IPRATROPIUM BROM 0.5 MG/2.5 ML VIAL.NEB (ATROVENT) INH SCH ×6 (03:00→23:56)
[2022-10-02] MEDS: ALBUTEROL SULFATE 0.083% 2.5 MG/3 ML VIAL.NEB INH SCH ×6 (03:00→23:56)
[2022-10-02] MEDS: PIPERACILLIN/TAZO 3.375/DEX-IS 50 ML IV SCH (06:06)
[2022-10-02] MEDS ORDERED: INSULIN Lispro 100 UNITS/ML, 3 ML VIAL (humaLOG) SUBCUT ONE (06:45)
[2022-10-02 07:53] LABS: EOSINOPHILS % (AUTO) 0.3 % (0.0-4.0); HEMATOCRIT 28.7 % (36-48); HEMOGLOBIN 9.2 g/dL (12.0-16.0); LYMPHOCYTES # (AUTO) 0.9 K/uL (1.0-5.5); LYMPHOCYTES % (AUTO) 6.6 % (20.5-51.5); MEAN CORPUSCULAR HEMOGLOBIN 31 pg (27-31); MEAN CORPUSCULAR HGB CONC 32 % (32-36); MEAN CORPUSCULAR VOLUME 97 fL (79.0-98.0); MONOCYTES # (AUTO) 0.7 K/uL (0.0-1.0); MONOCYTES % (AUTO) 5.1 % (1.7-9.3); NEUTROPHILS # (AUTO) 11.8 K/uL (1.8-7.7); PLATELET COUNT (AUTO) 101 K/uL (130-430); RED BLOOD CELL COUNT(AUTO) 2.94 MIL/uL (4.2-6.2); WHITE BLOOD COUNT (AUTO) 13.4 K/uL (4.8-10.8)
[2022-10-02] MEDS ORDERED: INSULIN NPH 100 UNITS/ML 10 ML VIAL SUBCUT ONE (08:30)
[2022-10-02 08:40] LABS: ALBUMIN 1.9 g/dL (3.4-4.8); C-REACTIVE PROTEIN QUANT 13.4 mg/dL (0-0.5); CALCIUM 8.4 mg/dL (8.4-11.0); CREATININE 1.76 mg/dL (0.55-1.30); PHOSPHORUS 3.9 mg/dL (2.7-4.5); TOTAL BILIRUBIN 0.9 mg/dL (0.0-1.0)
[2022-10-02 08:59] LABS: ERYTHROCYTE SEDIMENTATION RATE 61 MM/HR (0-20)
[2022-10-02] MEDS ORDERED: METOPROLOL SUCCINATE 25 MG TAB.SR.24H (TOPROL XL) PO SCH (09:00)
[2022-10-02] MEDS: BISACODYL 10 MG/SUPPOSITORY RC SCH (09:00)
[2022-10-02] MEDS: 0.45% NACL 1,000 ML IV SCH ×2 (10:30→19:21)
--- NOTE | 2022-10-02 12:00 | NUR ---
CM:Discussed dcp with dtr, Naida and morning caregiver /Andrea at bedside. Dtr does not want snf only to dc home/homehealth with caregiver. Faxing the referral by dcp/Tom : [facility] and [facility] for FWW. The pt may need home oxygen : pending oxygen saturation with activity documentation from PT and nursing, to determine home oxygen need.
[2022-10-02] MEDS ORDERED: METOPROLOL SUCCINATE 25 MG TAB.SR.24H (TOPROL XL) PO ONE (12:15)
--- NOTE | 2022-10-02 13:00 | NUR ---
CM: Verified with dr. Cornejo for ABX upon discharge to home with home health : to give Cefepime 2 gm IV daily with Diflucan 100 Mg by mouth daily for 7 days.
[2022-10-02] MEDS: CEFEPIME 2 GM in D5W 100 ML IV SCH (13:07)
[2022-10-02] MEDS: FLUCONAZOLE 100 mg/ NS 50 ML IV SCH (13:07)
[2022-10-02] MEDS: INSULIN LISPRO SLIDING SCALE 100 UNITS/ML, 3 ML VIAL (humaLOG) SUBCUT PRN ×3 (13:20→22:33)
[2022-10-02 16:30] VITALS: BP_SYST 117
[2022-10-02 20:50] VITALS: BP_SYST 111
[2022-10-02] MEDS ORDERED: INSULIN NPH 100 UNITS/ML 10 ML VIAL SUBCUT SCH (21:00)
[2022-10-02] MEDS: INSULIN GLARGINE 100 UNITS/ML, 10 ML VIAL SUBCUT SCH (22:35)
[2022-10-02] MEDS: HEPARIN SODIUM,PORCINE 5,000 UNITS/ML VIAL SUBCUT SCH (22:37)
--- NOTE | 2022-10-02 22:37 | NUR ---
Fingerstick BS 172mg/dL, meds BS result 171 mg/dL covered with humalog and administered scheduled Lantus. Reviewed medication and daughter in law (visiting at bedside), verbalized understanding. Scheduled meds given. No longer on Heparin drip, it was stop.
[2022-10-03] MEDS: ACETAMINOPHEN 325 MG TABLET PO PRN (00:33)
--- NOTE | 2022-10-03 01:08 | NUR ---
SBAR Report taken from Oma CASE .
--- NOTE | 2022-10-03 01:09 | NUR ---
TYLENOL 650 MG po given for general with small sip of water / .
[2022-10-03 01:56] VITALS: BP_SYST 103
--- NOTE | 2022-10-03 02:26 | NUR ---
NPO patient NPO for AM procedure alert & aware .
[2022-10-03] MEDS: IPRATROPIUM BROM 0.5 MG/2.5 ML VIAL.NEB (ATROVENT) INH SCH ×6 (03:00→23:00)
[2022-10-03] MEDS: ALBUTEROL SULFATE 0.083% 2.5 MG/3 ML VIAL.NEB INH SCH ×6 (03:00→23:00)
--- NOTE | 2022-10-03 06:33 | NUR ---
patient Reuse sliding scale insulin & Remains NPO .
[2022-10-03] MEDS: 0.45% NACL 1,000 ML IV SCH (06:35)
[2022-10-03] MEDS: HEPARIN SODIUM,PORCINE 5,000 UNITS/ML VIAL SUBCUT SCH ×3 (06:36→21:58)
[2022-10-03 06:57] LABS: BASOPHILS % (AUTO) 0.1 % (0.0-2.0); EOSINOPHILS # (AUTO) 0.2 K/uL (0.0-0.4); EOSINOPHILS % (AUTO) 1.5 % (0.0-4.0); HEMATOCRIT 26.7 % (36-48); HEMOGLOBIN 8.8 g/dL (12.0-16.0); LYMPHOCYTES # (AUTO) 1.2 K/uL (1.0-5.5); LYMPHOCYTES % (AUTO) 9.1 % (20.5-51.5); MEAN CORPUSCULAR HEMOGLOBIN 32 pg (27-31); MEAN CORPUSCULAR HGB CONC 33 % (32-36); MEAN CORPUSCULAR VOLUME 96 fL (79.0-98.0); MONOCYTES # (AUTO) 0.9 K/uL (0.0-1.0); MONOCYTES % (AUTO) 6.5 % (1.7-9.3); NEUTROPHILS # (AUTO) 11.3 K/uL (1.8-7.7); NEUTROPHILS % (AUTO) 82.8 % (40.0-70.0); PLATELET COUNT (AUTO) 133 K/uL (130-430); RED BLOOD CELL COUNT(AUTO) 2.78 MIL/uL (4.2-6.2); RED CELL DISTRIBUTION WIDTH 13.7 % (9.0-15.0); WHITE BLOOD COUNT (AUTO) 13.6 K/uL (4.8-10.8)
[2022-10-03 07:30] LABS: TOTAL IRON BIND. CAPACITY 138 ug/dL (250-450)
[2022-10-03 07:43] LABS: C-REACTIVE PROTEIN QUANT 16.4 mg/dL (0-0.5); CALCIUM 8.9 mg/dL (8.4-11.0); CREATININE 1.75 mg/dL (0.55-1.30); PHOSPHORUS 2.9 mg/dL (2.7-4.5); TOTAL BILIRUBIN 0.5 mg/dL (0.0-1.0)
[2022-10-03 08:00] VITALS: BP_SYST 112
--- NOTE | 2022-10-03 08:00 | NUR ---
SUMMARY OF CARE 0800- FAMILY AT BEDSIDE, INCONTINENT WITH URINE, DIAPER CHANGED, NOTED WITH BILATERAL HIP EDEMA. SEEN BY DR BYRD, W/NEW ORDERED. KEPT NPO FOR MRCP 1000- SEEN BY COLLINS, SITTED AT THE EDGE OF BED, UNABLE TO WALK 1130- WENT TO MRI FOR MRCP 1230- BACK TO MRI, RESUMED DIET, LANTUS INSULIN GIVEN 1500- FAMILY AT BEDSIDE 1900- NO SOB, IV DC'D, FAMILY AT BEDSIDE.
[2022-10-03 08:29] LABS: ERYTHROCYTE SEDIMENTATION RATE 84 MM/HR (0-20)
[2022-10-03] MEDS: BISACODYL 10 MG/SUPPOSITORY RC SCH (09:00)
[2022-10-03] MEDS ORDERED: POTASSIUM CHLORIDE 20 MEQ TAB.PRT.SR PO ONE (10:30)
[2022-10-03] MEDS ORDERED: ASPIRIN 81 MG TAB.CHEW PO ONE (11:45)
[2022-10-03] MEDS ORDERED: FUROSEMIDE 20 MG/2 ML VIAL IVP ONE (11:45)
[2022-10-03] MEDS: FLUCONAZOLE 100 mg/ NS 50 ML IV SCH (13:06)
[2022-10-03] MEDS: METOPROLOL SUCCINATE 25 MG TAB.SR.24H (TOPROL XL) PO SCH (13:12)
[2022-10-03] MEDS: INSULIN GLARGINE 100 UNITS/ML, 10 ML VIAL SUBCUT SCH ×2 (13:24→22:12)
[2022-10-03] MEDS: INSULIN LISPRO SLIDING SCALE 100 UNITS/ML, 3 ML VIAL (humaLOG) SUBCUT PRN ×2 (13:27→18:25)
[2022-10-03 13:40] VITALS: BP_SYST 113
[2022-10-03] MEDS: CEFEPIME 2 GM in D5W 100 ML IV SCH (13:40)
--- NOTE | 2022-10-03 13:51 | NUR ---
CM: Per dr. Banks dc pt to home with HH/PT /ABX and DME: FWW and home oxygen. The discharge is pending clearance from renal and cardiology. He will speak with consultants before he can give the final discharge order.
--- NOTE | 2022-10-03 13:58 | NUR ---
DME: s/p with Julia/Stacy # : she received the orders and being process. She will call back with ETA for the FWW and home O2 delivery.
--- NOTE | 2022-10-03 15:41 | NUR ---
PHYSICAL THERAPY CO-SIGN The Physical Therapy Progress Notes documented by Client Support Consultant have been reviewed. Reviewed/Co-Signed by: Ulysses Solis Documentation Done by:MAMIE MANSFIELD Addendum: 10/03/22 at 1542 by Ulysses Solis PT Amended: Links added.
--- NOTE | 2022-10-03 16:08 | NUR ---
Nutrition F/U Perinatal Tech reviewed pts current EMR including diet hx, physician notes, nursing notes, pertinent labs/meds/procedures, care trends, and care activity. Admitting Diagnosis DKA Medical History Comment: Per [facility] Consult 09/29: Pt brought in for N/V and lethargy. Patient is found to be in DKA along with signs of sepsis. Patient started with antibiotics however respiratory failure worsened and patient required intubation. Pt found to have severe metabolic acidosis, septic shock, w/ guarded prognosis. Per H&P: 67YOF: the patient was intubated. The patient feels lethargic and blood sugar in the range was found to be 400. Initial workup significant for acute CHF, DKA, HyperK, HypoNa, CAM[place]. Pt extubated on 10/02 C/O low appetite, sore throat Ultrasound results: Fatty liver & cholelithiasis w/ mild ascites Still on IV fluids, Abx Subjective Information Perinatal Tech s/w pt and daughter at bedside. Pt ate 5% of lunch, because she dislikes gravy on the food. Pt asked for Glucerna w/ a CCHO, puree d/t her DKA. Offered snacks BID pt declined. No N/V. Pt reported having an allergy to aspartame. UBW: 135#/61kg Likes: Herbal tea, decaf tea, coffee 1x daily only Dislikes: Gravy Current Diet Order/Nutrition Support Puree x 1 day Patient/Significant Other Able To Verbalize Education Provided Not Indicated Pertinent Medications Heparin, Lantus, NaCl, SSI Pertinent Labs WBC 13.6H (trending down), Na 141 WNL, K+ 3.4L (trending down), BUN 39H (trending down), Cre 1.75H (trending down), GFR 31L (trending up), BG 210H (trending down) [09/29]: Hba1c 10.2H Height (Feet) 5 feet Height (Inches) 4.00 inches Weight (Pounds) 120 pounds (stable since 09/30) Weight (Calculated Kilograms) 54.738851 kilograms Patient Weight 54.431 kg Body Mass Index 20.60 kg/m2 %IBW 100 [place]/Adjusted Body Weight 120#/ 54 kg Recent Weight Change Yes 15# wt loss within the last 3 months (11% wt change) Weight Status Appropriate Last BM 10/03 Food Allergies Unable to assess Usual Diet At Home Regular per RN screen Skin Integrity Comment: Antonio: 14 (10/02) Edema: None noted Current % PO Good, avg 75% x 1 meal Estimated Energy Expenditure (kcals/day) 1682-6445 kcal (30-35 kcal/kg CBW d/t sepsis, DKA, geriat maintenance) Estimated Protein Required (g/day) 43-76 g (0.8-1.4 g/kg CBW d/t sepsis, CKD) Estimated Fluid Required (l/day) Refer to MD (CKD/CHF) Problem/Etiology/Signs/Symptoms * Inadequate oral intake R/T decreased appetite AEB pt report not having any appetite per EMR. (*New) * Altered nutrition-related lab values r/t endocrine dysfunction AEB elevated BG 367, elevated POC B/371 (*Ongoing) * Inadequate oral intake r/t diet order AEB NPO since 09/28 (*Resolved) Expected Outcomes/Goals * Monitor appetite and PO intakes w/ goal of pt meeting >100% of estimated nutritional needs, nutrition-related labs trending WNL, skin integrity w/ wt. maintenance. Dietitian Recommendations CCHO, Puree diet, Glucerna TID, Pradip BID (ONS provides 840 kcals/day and 35 g PRO/day). Encourage good PO intakes Follow Up Mod Risk: F/U in 3-5days
--- NOTE | 2022-10-03 16:09 | NUR ---
Dietitian Recommendations CCHO, Puree diet, Glucerna TID, Pradip BID (ONS provides 840 kcals/day and 35 g PRO/day). Encourage good PO intakes LP, MS, RD Please refer to Nutrition F/U for details.
[2022-10-03] MEDS ORDERED: ISOSORBIDE MONONITRATE 30 MG TAB.ER.24H PO ONE (17:00)
[2022-10-03 17:19] VITALS: BP_SYST 118
[2022-10-03 20:00] VITALS: BP_SYST 115
[2022-10-03] MEDS ORDERED: METOPROLOL SUCCINATE 25 MG TAB.SR.24H (TOPROL XL) PO ONE (21:00)
[2022-10-03] MEDS: metroNIDAZOLE 500 mg/NS 100 ML IV SCH (21:55)
[2022-10-04] MEDS: ALBUTEROL SULFATE 0.083% 2.5 MG/3 ML VIAL.NEB INH SCH ×6 (03:00→23:00)
[2022-10-04] MEDS: IPRATROPIUM BROM 0.5 MG/2.5 ML VIAL.NEB (ATROVENT) INH SCH ×6 (03:00→23:00)
[2022-10-04 04:00] VITALS: BP_SYST 112
[2022-10-04] MEDS: HEPARIN SODIUM,PORCINE 5,000 UNITS/ML VIAL SUBCUT SCH ×3 (06:29→21:41)
[2022-10-04 07:45] LABS: BASOPHILS % (AUTO) 0.2 % (0.0-2.0); EOSINOPHILS # (AUTO) 0.3 K/uL (0.0-0.4); EOSINOPHILS % (AUTO) 3.3 % (0.0-4.0); HEMATOCRIT 24.6 % (36-48); HEMOGLOBIN 8.3 g/dL (12.0-16.0); LYMPHOCYTES % (AUTO) 12.8 % (20.5-51.5); MEAN CORPUSCULAR HEMOGLOBIN 32 pg (27-31); MEAN CORPUSCULAR HGB CONC 34 % (32-36); MEAN CORPUSCULAR VOLUME 96 fL (79.0-98.0); MONOCYTES # (AUTO) 1.1 K/uL (0.0-1.0); MONOCYTES % (AUTO) 13.4 % (1.7-9.3); NEUTROPHILS # (AUTO) 5.6 K/uL (1.8-7.7); NEUTROPHILS % (AUTO) 70.3 % (40.0-70.0); PLATELET COUNT (AUTO) 139 K/uL (130-430); RED BLOOD CELL COUNT(AUTO) 2.58 MIL/uL (4.2-6.2); RED CELL DISTRIBUTION WIDTH 13.6 % (9.0-15.0)
[2022-10-04 07:58] LABS: ALBUMIN 1.7 g/dL (3.4-4.8); C-REACTIVE PROTEIN QUANT 11.8 mg/dL (0-0.5); CALCIUM 8.4 mg/dL (8.4-11.0); CREATININE 1.61 mg/dL (0.55-1.30); PHOSPHORUS 2.5 mg/dL (2.7-4.5); TOTAL BILIRUBIN 0.3 mg/dL (0.0-1.0)
[2022-10-04 08:00] VITALS: BP_SYST 118
[2022-10-04 08:58] LABS: ERYTHROCYTE SEDIMENTATION RATE 82 MM/HR (0-20)
[2022-10-04] MEDS: BISACODYL 10 MG/SUPPOSITORY RC SCH (09:00)
[2022-10-04] MEDS: ASPIRIN 81 MG TAB.CHEW PO SCH (10:00)
[2022-10-04] MEDS: METOPROLOL SUCCINATE 25 MG TAB.SR.24H (TOPROL XL) PO SCH (10:08)
[2022-10-04] MEDS: ISOSORBIDE MONONITRATE 30 MG TAB.ER.24H PO SCH (10:10)
[2022-10-04] MEDS: metroNIDAZOLE 500 mg/NS 100 ML IV SCH ×2 (10:10→21:41)
[2022-10-04] MEDS ORDERED: FUROSEMIDE 20 MG/2 ML VIAL IVP ONE (10:30)
[2022-10-04] MEDS: INSULIN GLARGINE 100 UNITS/ML, 10 ML VIAL SUBCUT SCH ×2 (10:35→21:00)
[2022-10-04 11:27] VITALS: BP_SYST 122
[2022-10-04 12:07] LABS: HEPATITIS A AB, IgM Negative (Negative); HEPATITIS B CORE AB, IgM Negative (Negative); HEPATITIS B SURFACE AG Negative (Negative)
[2022-10-04 13:06] LABS: ANTI NUCLEAR AB WITH REFLEX Negative (Negative)
[2022-10-04] MEDS: CEFEPIME 2 GM in D5W 100 ML IV SCH (13:44)
[2022-10-04] MEDS: FLUCONAZOLE 100 mg/ NS 50 ML IV SCH (13:57)
[2022-10-04 15:10] VITALS: BP_SYST 124
--- NOTE | 2022-10-04 15:25 | NUR ---
PHYSICAL THERAPY CO-SIGN The Physical Therapy Progress Notes documented by [employer] Consultant have been reviewed. Reviewed/Co-Signed by: Ulysses Solis Documentation Done by:MAMIE MANSFIELD Addendum: 10/04/22 at 1525 by Ulysses Solis PT Amended: Links added.
[2022-10-04] MEDS: INSULIN LISPRO SLIDING SCALE 100 UNITS/ML, 3 ML VIAL (humaLOG) SUBCUT PRN (16:28)
[2022-10-04 20:00] VITALS: BP_SYST 130
[2022-10-05] VITALS: BP_SYST 142
[2022-10-05] MEDS: IPRATROPIUM BROM 0.5 MG/2.5 ML VIAL.NEB (ATROVENT) INH SCH ×4 (03:00→15:48)
[2022-10-05] MEDS: ALBUTEROL SULFATE 0.083% 2.5 MG/3 ML VIAL.NEB INH SCH ×4 (03:00→15:48)
[2022-10-05 04:00] VITALS: BP_SYST 136
[2022-10-05] MEDS: HEPARIN SODIUM,PORCINE 5,000 UNITS/ML VIAL SUBCUT SCH ×2 (06:42→14:43)
[2022-10-05] MEDS: INSULIN LISPRO SLIDING SCALE 100 UNITS/ML, 3 ML VIAL (humaLOG) SUBCUT PRN ×2 (06:58→12:36)
[2022-10-05 07:22] LABS: ALBUMIN 1.8 g/dL (3.4-4.8); C-REACTIVE PROTEIN QUANT 10.4 mg/dL (0-0.5); CALCIUM 8.7 mg/dL (8.4-11.0); CREATININE 1.44 mg/dL (0.55-1.30); PHOSPHORUS 2.6 mg/dL (2.7-4.5); TOTAL BILIRUBIN 0.4 mg/dL (0.0-1.0)
[2022-10-05 07:33] LABS: BASOPHILS % (AUTO) 0.3 % (0.0-2.0); EOSINOPHILS # (AUTO) 0.2 K/uL (0.0-0.4); EOSINOPHILS % (AUTO) 3.5 % (0.0-4.0); HEMATOCRIT 25.7 % (36-48); HEMOGLOBIN 8.4 g/dL (12.0-16.0); LYMPHOCYTES # (AUTO) 0.9 K/uL (1.0-5.5); LYMPHOCYTES % (AUTO) 12.2 % (20.5-51.5); MEAN CORPUSCULAR HEMOGLOBIN 32 pg (27-31); MEAN CORPUSCULAR HGB CONC 33 % (32-36); MEAN CORPUSCULAR VOLUME 97 fL (79.0-98.0); MONOCYTES # (AUTO) 1.1 K/uL (0.0-1.0); MONOCYTES % (AUTO) 15.3 % (1.7-9.3); NEUTROPHILS # (AUTO) 4.8 K/uL (1.8-7.7); NEUTROPHILS % (AUTO) 68.7 % (40.0-70.0); PLATELET COUNT (AUTO) 163 K/uL (130-430); RED BLOOD CELL COUNT(AUTO) 2.66 MIL/uL (4.2-6.2); RED CELL DISTRIBUTION WIDTH 13.7 % (9.0-15.0)
[2022-10-05 07:50] VITALS: BP_SYST 120
[2022-10-05 08:05] LABS: ERYTHROCYTE SEDIMENTATION RATE 80 MM/HR (0-20)
[2022-10-05] MEDS: BISACODYL 10 MG/SUPPOSITORY RC SCH (09:00)
[2022-10-05] MEDS: metroNIDAZOLE 500 mg/NS 100 ML IV SCH (09:26)
[2022-10-05] MEDS: ASPIRIN 81 MG TAB.CHEW PO SCH (09:31)
[2022-10-05] MEDS: ISOSORBIDE MONONITRATE 30 MG TAB.ER.24H PO SCH (09:33)
[2022-10-05] MEDS: METOPROLOL SUCCINATE 25 MG TAB.SR.24H (TOPROL XL) PO SCH (09:33)
[2022-10-05] MEDS: INSULIN GLARGINE 100 UNITS/ML, 10 ML VIAL SUBCUT SCH (09:45)
--- NOTE | 2022-10-05 12:00 | NUR ---
Patient received midline placement to Right upper arm, completed procedure by PICC nurse at 1200. Midline flesh to skin, double lumen, clean dry dressing, patent when flushed.
[2022-10-05] MEDS: FLUCONAZOLE 100 mg/ NS 50 ML IV SCH (12:04)
[2022-10-05] MEDS: CEFEPIME 2 GM in D5W 100 ML IV SCH (12:05)
[2022-10-05] MEDS ORDERED: CLOP75TA32 PO (13:42)
[2022-10-05] MEDS ORDERED: ISOS30TA85 PO (13:42)
[2022-10-05] MEDS ORDERED: ASPI-862 PO (13:42)
[2022-10-05] MEDS ORDERED: CEPH250C PO (13:42)
[2022-10-05] MEDS ORDERED: DIF100 PO (13:42)
[2022-10-05] MEDS ORDERED: METO-540 PO (13:42)
[2022-10-05] MEDS ORDERED: INSU100V9 SUBCUT (13:42)
[2022-10-05 15:35] VITALS: BP_SYST 118
[2022-10-05 16:30] VITALS: BP_SYST 118
--- NOTE | 2022-10-05 16:30 | NUR ---
Right IJ removed by resource nurse EVIE Chiang. Catheter intact, patient tolerated well, sited not bleeding, covered with gauze and tape. Right upper arm midline removed, catheter intact, site not bleeding, covered with gauze and tape.
--- NOTE | 2022-10-05 17:00 | NUR ---
Patient discharged in stable condition. RIJ and ALISA midline removed, dressings non bleeding, clean, dry, intact. Belongings returned,Family provided transportation for patient.
== END 2022-10-05 16:55 | disposition home or self-care (01) | DRG 871 ==
LOC: SED 09:35 → SIC 11:38 → STU 10-01 13:11
PROVIDERS: ADMIT Preventive Medicine Preventive Medicine/Occupational Environmental Medicine; ATTEND Preventive Medicine Preventive Medicine/Occupational Environmental Medicine
PROC: 5A1945Z Respiratory Ventilation, 24-96 Consecutive Hours (ICD-10-PCS; principal; 2022-09-28)
PROC: 02HV33Z Insertion of Infusion Device into Superior Vena Cava, Percutaneous Approach (ICD-10-PCS; 2022-09-28)
PROC: B548ZZA Ultrasonography of Superior Vena Cava, Guidance (ICD-10-PCS; 2022-09-28)
PROC: 0BH17EZ Insertion of Endotracheal Airway into Trachea, Via Natural or Artificial Opening (ICD-10-PCS; 2022-09-28)
DX: A41.9 Sepsis, unspecified organism (principal); E10.10 Type 1 diabetes mellitus with ketoacidosis without coma; R65.21 Severe sepsis with septic shock; J69.0 Pneumonitis due to inhalation of food and vomit; J96.01 Acute respiratory failure with hypoxia; E43 Unspecified severe protein-calorie malnutrition; N17.9 Acute kidney failure, unspecified; N39.0 Urinary tract infection, site not specified; I13.0 Hypertensive heart and chronic kidney disease with heart failure and stage 1 through stage 4 chronic kidney disease, or unspecified chronic kidney disease; Z99.11 Dependence on respirator [ventilator] status; E78.5 Hyperlipidemia, unspecified; D64.9 Anemia, unspecified; E87.5 Hyperkalemia; E86.0 Dehydration; I25.10 Atherosclerotic heart disease of native coronary artery without angina pectoris; D69.6 Thrombocytopenia, unspecified; E83.51 Hypocalcemia; E87.6 Hypokalemia; E88.09 Other disorders of plasma-protein metabolism, not elsewhere classified; E83.39 Other disorders of phosphorus metabolism; K21.9 Gastro-esophageal reflux disease without esophagitis; I50.9 Heart failure, unspecified; N18.9 Chronic kidney disease, unspecified; E10.22 Type 1 diabetes mellitus with diabetic chronic kidney disease; J45.909 Unspecified asthma, uncomplicated; K76.0 Fatty (change of) liver, not elsewhere classified; I95.1 Orthostatic hypotension; K80.20 Calculus of gallbladder without cholecystitis without obstruction; Z20.822 Contact with and (suspected) exposure to COVID-19; Z79.01 Long term (current) use of anticoagulants; Z79.4 Long term (current) use of insulin; Z79.899 Other long term (current) drug therapy; Z86.73 Personal history of transient ischemic attack (TIA), and cerebral infarction without residual deficits; Z90.49 Acquired absence of other specified parts of digestive tract; Z68.20 Body mass index [BMI] 20.0-20.9, adult
CPT/HCPCS: 36415; 36600; 70450-TC; 71045; 74018; 74181; 76376; 76700-TC; 78226; 80048; 80053; 80074; 80307; 81000; 82009; 82140; 82306; 82390; 82550; 82553; 82803-TC; 82947; 82962; 82977; 83037; 83516; 83540; 83550; 83605; 83615; 83690; 83735; 83880; 84100; 84439; 84443; 84484; 85025; 85610-TC; 85651-TC; 85730-TC; 86038; 86140; 87040; 87070-TC; 87081; 87205-TC; 92610-GN; 93005; 93306; 94002; 94003; 94640; 94760; 97110-GP; 97112-GP; 97163-GP; 97530-GP; 99291; A9537; G0378; G0480; G0481; G0482; J0610; J0692; J1450; J1644; J1815; J1940; J2020; J2405; J2543; J2704; J3010; J3480; J3490; J7050; J7060; J7613

== ENCOUNTER 2023-01-27 08:29 | Outpatient (CLI) | payer OTHER, MEDICAID ==
[~2023-01-27 08:29] MED LIST changes: +ACET-73 PO; +ASPI-862 PO; +CEPH250C PO; +CLOP75TA32 PO; +DIF100 PO; -FLA250 PO; +FLOR.1 GT; -INSU100V9 SQ; +INSU100V9 SUBCUT; +ISOS30TA85 PO; +LIP20 PO; +METO-540 PO; +ONDA8TAB60 PO
== END 2023-01-27 19:26 | disposition short-term general hospital (02) ==
LOC: SNM 08:29
PROVIDERS: ATTEND Orthopaedic Surgery
DX: K80.20 Calculus of gallbladder without cholecystitis without obstruction (principal)
CPT/HCPCS: 78226; A9537